=== PATIENT | female | born 1970 | race African-American/Black ===

== ENCOUNTER 2016-04-07 15:22 | Emergency (ER) | payer OTHER ==
[~2016-04-07] VITALS: Ht 172.7 cm; Wt 81.6 kg
[2016-04-07 15:48] VITALS: BP 137/99
[2016-04-07] MEDS ORDERED: oxyCODONE/APAP (5/325 MG) 1 UDTAB TABLET ONE (16:20)
[2016-04-07] MEDS ORDERED: oxyCODONE/APAP (5/325 MG) 1 UDTAB TABLET PO ONE (16:30)
== END 2016-04-07 16:28 | disposition home or self-care (01) ==
LOC: ER 15:28
DX: K08.89 Other specified disorders of teeth and supporting structures (principal); Z88.6 Allergy status to analgesic agent
CPT/HCPCS: A4606; Z7610